=== PATIENT | male | born 1960 | race Caucasian/White ===

== ENCOUNTER 2023-07-21 20:24 | Emergency (ER) | payer MEDICARE, OTHER, SELFPAY ==
[2023-07-21 20:29] VITALS: BP 107/77
[2023-07-21 21:01] LABS: % Basophils 0.3 % (0-2); % Eosinophils 1.6 % (0-6); % Immature Granulocytes 0.3 % (0-0.5); % Lymphocytes 17.3 % (20.5-51.1); % Monocytes 7.4 % (1.7-9.3); % Neutrophils 73.1 % (42.2-75.2); Absolute Eosinophils 0.2 10^3/uL (0-0.7); Absolute Lymphocytes 1.8 10^3/uL (1.2-3.4); Absolute Monocytes 0.8 10^3/uL (0.1-0.6); Absolute Neutrophils 7.8 10^3/uL (1.4-6.5); Hematocrit 36.2 % (39.0-52.0); Hemoglobin 12.5 g/dL (13.0-18.0); Mean Corp Hgb Conc. 34.5 g/dL (33.0-37.0); Mean Corpuscular Hgb 30.9 pg (27.0-31.0); Mean Corpuscular Volume 89.6 fL (80.0-94.0); Mean Platelet Volume 11.3 fL (7.4-10.4); Nucleated Red Blood Cells % 0 % (-); Platelet Count 195 10^3/uL (130-400); Red Blood Cell Count 4.04 10^6/uL (4.70-6.10); Red Cell Dist. Width 13.7 % (11.5-14.5); White Blood Cell Count 10.6 10^3/uL (4.8-10.8)
[2023-07-21 21:12] LABS: Lactic Acid 0.9 mmol/L (0.7-2.0)
[2023-07-21 21:28] LABS: ALT (SGPT) 31 U/L (0-50); AST (SGOT) 40 U/L (17-59); Albumin 4.4 g/dl (3.5-5.0); Alkaline Phosphatase 71 U/L (38-126); Blood Urea Nitrogen 21 mg/dl (9-20); Calcium 9.4 mg/dl (8.4-10.2); Carbon Dioxide 24 mmol/L (22-30); Chloride 103 mmol/L (98-107); Glucose 89 mg/dl (70-99); Potassium 4.1 mmol/L (3.5-5.1); Sodium 134 mmol/L (135-145); Total Bilirubin 0.4 mg/dl (0.2-1.3); Total Protein 7.1 g/dl (6.3-8.2); eGFR > 60.00
[2023-07-21 22:31] VITALS: BMI 29.9
[2023-07-21 22:32] VITALS: BP 102/73
--- NOTE | 2023-07-21 22:54 | ED.GENMED ---
History of Present Illness
General
Chief Complaint: Skin Problem
Source: patient and spouse
Exam Limitations: none
Time Seen by Provider: 07/21/23 22:27
Travel History
Have you had any contact with someone who has COVID-19?: No
Do you have any symptoms of coronavirus? Fever > 100 degrees, chills, cough, shortness of breath, sore throat, loss of taste or smell, muscle aches, or headache?: No
History of Present Illness
History of Present Illness:
This is a 63 year old male that comes in with c/o left elbow pain. States that he started with pain last night. States that he went to work today and when he got home he couldn't get comfortable. states that 2 years ago he had a biopsy donw and
the would wound never heal. Patient had seen a specialist in [facility] but was discharged from her a long time ago. States that he has been good for Months. States that he also had seen a entry specialist at one point in [place] with the
last being in June. Denies any fever, chills, chest pain, SOB, abd pain, nausea, vomiting, diarrhea, headache, dizziness, urinary burning.
Past History
Past History
ED Past Medical History: Asthma, CAD, Cancer (Skin Ca), HTN, Hypercholesterolemia, MS and Other (PE, Sarcoidosis, Patient denies having Raynaud's)
ED Past Surgical History: None, Cardiac (Stent) and Orthopedic (Right 1st and 2nd partial finger amputations, Carpal tunnel, Elbow surgery)
Social History
Tobacco: Former smoker
Alcohol: Occasional
Drug: None
Personal:
Living: with family
Employment: Employed ([employer])
Family History
Family History: Other (No family history of coronary artery disease or aortic dissection)
Review of Systems
Review of Systems
All Other Systems: ROS reviewed and negative except as documented in HPI and ROS
Constitutional: Reports no symptoms; Denies fever or chills
EENT: Reports no symptoms
Respiratory: Reports no symptoms; Denies cough or trouble breathing
Cardiac: Reports no symptoms; Denies chest pain
ABD/GI: Reports no symptoms; Denies abdominal pain, nausea, vomiting or diarrhea
: Reports no symptoms; Denies dysuria, frequency or urgency
Musculoskeletal: Reports joint pain (Left elbow pain and swelling)
Skin: Reports other (Redness left elbow)
Neurological: Reports no symptoms; Denies dizzy or headache
Psychiatric: Reports no symptoms
Phy Exam
General Physical Exam
General Presentation: mild distress
General age: appears stated age
General Skin: warm and dry
General Habitus: normal
General Mental: alert
General Hydration: appears well hydrated
ENT Exam
ENT Exam: TM's normal, pharynx normal and neck supple
Eye Exam
Eye Exam: EOMI
Cardiovascular Exam
Cardiovascular Exam: regular rate/rhythm, no edema, normal peripheral pulses and other ( Murmur)
Pulmonary Exam
Pulmonary Exam: lungs clear, no respiratory distress, no rales, chest non tender, no crackles, no rhonchi, no wheezing and no cough
Gastrointestinal Exam
Gastrointestinal Exam: normal bowel sounds, non tender, soft, no organomegaly, no pulsatile mass and non distended
Musculoskeletal Exam
Musculoskeletal Exam: other (Limite ROM left arm due to pain left elbow with swelling and redness. Increased warmth)
Skin Exam
Skin Exam: normal color, warm/dry, no petechia and redness (Left elbow with increased warmth)
Psychiatric Exam
Psychiatric Exam: normal mood/affect
Course
Orders/Labs/Results
Orders:
Orders
07/21/23 20:48
C-Reactive Protein Urgent
Comment: ADD ON
Complete Blood Count/With Diff Urgent
Comprehensive Metabolic Panel Urgent
Erythrocyte Sed Rate Urgent
Comment: ADD ON
Lactic Acid Urgent
Blood Culture Urgent
EKTA Source: Blood/Venous
Specimen Description:
07/21/23 22:52
Add On- LAB Urgent
Tests Added?: Sed rate, CRP
Elbow, Left [CR Elbow - Left Min 3 Views ] Urgent
Comment:
Reason For Exam: Swelling pain
07/21/23 22:54
HYDROmorphone [Dilaudid] 1 mg IV NOW STA
Ondansetron Injectable [Zofran] 4 mg IV NOW STA
07/21/23 23:17
Blood Culture Urgent
EKTA Source: Blood/Venous
Specimen Description:
Abnormal Lab Results
07/21/23
20:48
RBC 4.04 L 10^6/uL
(4.70-6.10)
Hgb 12.5 L g/dL
(13.0-18.0)
Hct 36.2 L %
(39.0-52.0)
MPV 11.3 H fL
(7.4-10.4)
Absolute Neuts (auto) 7.8 H 10^3/uL
(1.4-6.5)
Absolute Monos (auto) 0.8 H 10^3/uL
(0.1-0.6)
Lymphocytes % 17.3 L %
(20.5-51.1)
Sodium 134 L mmol/L
(135-145)
BUN 21 H mg/dl
(9-20)
07/21/23 20:48
07/21/23 20:48
H/H slightly low. Slight dehydration. lactic acid 0.9, Sed rate normal at 16, CRP normal at 5.40
Vital Signs
Initial and Last Documented VS:
Initial Vital Signs
Temp Pulse Resp BP Pulse Ox
98.2 F 75 20 107/77 96
07/21/23 20:29 07/21/23 20:29 07/21/23 20:29 07/21/23 20:29 07/21/23 20:29
Last Documented Vital Signs
Temp Pulse Resp BP Pulse Ox
98.2 F 66 20 102/73 96
07/21/23 20:29 07/21/23 22:32 07/21/23 20:29 07/21/23 22:32 07/21/23 22:32
MDM/Problems Addressed
Differential Diagnosis Includes:
Septic joint. Cellulitis,
MDM/Problems Addressed:
This is a 63 year old male that comes in with c/o pain in the left elbow. 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 Last night he started with pain and now has swelling with redness.
Will get labs, X-ray and medicate for pain.
Back into see patient. Explained that his blood work is normal along with his inflammatory markers. His X-ray is negative for any obvious Osteo. Offered patient either admission or to try going home on antibiotics and then follow up with the wound
hospice home care coordinator. Patient would rather go home. States that his pain is better and he can now straight his arm. Will place patient on Bactrim and Keflex and given him his first doses here. Will also give patient a prescription for Toradol for pain.
Patient to return with fever, increased redness or any other concerns.
Chronic conditions affecting care:
Left elbow wound with infection
Acute Exacerbation and/or Progression of Chronic Illness:
Left elbow wound with infection.
*Radiology
Radiology exam reviewed: radiology read reviewed (Left Elbow= NO radiographic evidence for an acute osseous abnormality of the left elbow. Posterior soft tissue swelling)
*Pulse Oximetry
Patient hypoxic: no
*EKG
Interpreted by ED Provider?: NA
Rate: EKG- N/A
*Head Bone Grinder Interpretation
Rate: Head Bone Grinder- N/A
*Critical Care Note
Total Time (30-74mins, 75-104mins- exclusive of procedures): Not Applicable
ED Attending Note
-
Portions of this chart may have been created with voice recognition software.� Occasional wrong word or��sound alike� substitutions may have occurred due to the inherent limitations of voice recognition software.
Discharge Plan
Departure
Patient Disposition: Home (Routine Discharge)
Date of Disposition: 07/22/23
Time of Disposition: 00:24
Patient with high blood pressure during this ER visit?: No
Condition: Good
Covid-19: Not Applicable
Discharge Problem:
Cellulitis of left elbow
Instructions: Cellulitis (Skin Infection), Adult (DC)
Prescriptions:
New
sulfamethoxazole-trimethoprim [Bactrim DS] 800-160 mg tablet
1 tab PO BID Qty: 19 0RF
cephalexin 500 mg capsule
500 mg PO QID Qty: 39 0RF
hydromorphone [Dilaudid] 2 mg tablet
2 mg PO Q6H PRN (Reason: Pain) Qty: 5 0RF
No Action
calcium carbonate [Antacid (calcium carbonate)] 1 TABLET tablet,chewable
2 tab PO BIDPRN PRN (Reason: reflux)
apixaban [Eliquis] 5 MG tablet
5 mg PO BID Qty: 60 0RF
nitroglycerin 0.4 MG tablet, sublingual
0.4 mg sublingual [id number] PRN (Reason: hypertension/chest pain) Qty: 20 3RF
aspirin 81 MG tablet,chewable
81 mg PO DAILY 0RF
clopidogrel 75 MG tablet
75 mg PO DAILY Qty: 30 1RF
lisinopril 5 MG tablet
5 mg PO BID Qty: 60 1RF
rosuvastatin 20 MG tablet
20 mg PO QPM Qty: 30 1RF
metoprolol tartrate 25 MG tablet
25 mg PO BID Qty: 60 1RF
cephalexin 500 MG capsule
500 mg PO QID Qty: 28 0RF
Referrals:
UNKNOWN - PT DOES,NOT KNOW [Unknown Provider] -
[facility] - Follow up in 2-3 days
Activity Restrictions/Additional Instructions:
As discussed, your blood work is normal along with your inflammatory markers. Your X-ray is negative for any acute process. You have been given antibiotics here and a prescriptions for home had been sent to your Pharmacy. Please follow up in the
wound center. You may also use Tylenol 1000mg every 6 hours for pain. you have also been given a narcotic pain medication for a short time. IF YOU HAVE FEVER, INCREASED REDNESS, INCREASED SWELLING OR PAIN OR YOU HAVE ANY OTHER CONCERNS PLEASE RETURN
TO THE EMERGENCY ROOM.
Interventions
Interventions:
*Risk Screen - Suicide Last Done: 07/21/23 20:29
*General Assessment Last Done: 07/21/23 20:29
*Neglect/Abuse Screening Last Done: 07/21/23 22:32
*ED COVID-19 Vaccine History Last Done: 07/21/23 22:32
[2023-07-21 23:14] LABS: Erythrocyte Sed Rate 16 mm/hour (0-20)
[2023-07-21] MEDS: ZOFRAN 4 MG IV (23:14)
[2023-07-21] MEDS: DILAUDID 1 MG IV (23:14)
[2023-07-22 00:33] VITALS: BP 100/74
[2023-07-22] MEDS: KEFLEX 500 MG PO (00:42)
[2023-07-22] MEDS: BACTRIM DS 800 MG/160 MG 1 TABLET PO (00:42)
== END 2023-07-22 01:00 | disposition home or self-care (01) ==
LOC: EMR 20:24
PROVIDERS: Student in an Organized Health Care Education/Training Program; EMERGENCY PHYSICIAN Emergency Medicine; FAMILY PHYSICIAN Family Medicine
DX: L03.114 Cellulitis of left upper limb (principal); S51.002A Unspecified open wound of left elbow, initial encounter; X58.XXXA Exposure to other specified factors, initial encounter
CPT/HCPCS: 99284; 96374; 96375; 73080; 80053; 83605; 85025; 85652; 86140; 87040

== ENCOUNTER → 2023-08-23 06:59 | Outpatient (REF) | payer MEDICARE, OTHER, SELFPAY | LOC: HWRCS 06:59 | PROVIDERS: ATTENDING PHYSICIAN Internal Medicine; FAMILY PHYSICIAN Family Medicine | DX: M34.9 Systemic sclerosis, unspecified (principal) | CPT/HCPCS: 93306 ==

== ENCOUNTER → 2023-09-09 06:32 | Day surgery (SDC) | payer MEDICARE, OTHER, SELFPAY | LOC: GI 06:32 | PROVIDERS: ATTENDING PHYSICIAN Internal Medicine Gastroenterology; FAMILY PHYSICIAN Family Medicine | DX: Z12.11 Encounter for screening for malignant neoplasm of colon (principal); R19.5 Other fecal abnormalities | CPT/HCPCS: G0121 ==

== ENCOUNTER → 2023-09-10 06:27 | Day surgery (SDC) | payer MEDICARE, OTHER, SELFPAY | LOC: GI 06:27 | PROVIDERS: ATTENDING PHYSICIAN Internal Medicine Gastroenterology; FAMILY PHYSICIAN Family Medicine | DX: R19.5 Other fecal abnormalities (principal); Z12.11 Encounter for screening for malignant neoplasm of colon; K57.30 Diverticulosis of large intestine without perforation or abscess without bleeding; Z87.19 Personal history of other diseases of the digestive system; K63.89 Other specified diseases of intestine | CPT/HCPCS: 45380; 88305 ==

== ENCOUNTER → 2023-09-14 07:39 | Outpatient (REF) | payer MEDICARE, OTHER, SELFPAY | LOC: RSP 07:39 | PROVIDERS: ATTENDING PHYSICIAN Internal Medicine; FAMILY PHYSICIAN Family Medicine | DX: M34.9 Systemic sclerosis, unspecified (principal); R06.02 Shortness of breath | CPT/HCPCS: 94727; 94729; 88738; 94010 ==

== ENCOUNTER → 2023-10-01 06:41 | Outpatient (REF) | payer MEDICARE, OTHER, SELFPAY | LOC: RAD 06:41 | PROVIDERS: ATTENDING PHYSICIAN Family Medicine | DX: Z87.891 Personal history of nicotine dependence (principal) | CPT/HCPCS: 76770 ==

== ENCOUNTER → 2024-10-17 12:13 | Outpatient (REF) | payer MEDICARE, OTHER, SELFPAY | LOC: WOUND 12:13 | PROVIDERS: ATTENDING PHYSICIAN Surgery; FAMILY PHYSICIAN Family Medicine | DX: S61.202A Unspecified open wound of right middle finger without damage to nail, initial encounter (principal); M34.9 Systemic sclerosis, unspecified; X58.XXXA Exposure to other specified factors, initial encounter | CPT/HCPCS: 99203 ==

== ENCOUNTER → 2024-10-26 06:28 | Outpatient (REF) | payer MEDICARE, OTHER, SELFPAY ==
[2024-10-26 07:37] LABS: % Basophils 0.2 % (0-2); % Eosinophils 1.2 % (0-6); % Immature Granulocytes 0.4 % (0-0.5); % Monocytes 8.4 % (1.7-9.3); % Neutrophils 70.8 % (42.2-75.2); Absolute Eosinophils 0.1 10^3/uL (0-0.7); Absolute Lymphocytes 1.6 10^3/uL (1.2-3.4); Absolute Monocytes 0.7 10^3/uL (0.1-0.6); Absolute Neutrophils 5.9 10^3/uL (1.4-6.5); Hematocrit 40.8 % (39.0-52.0); Hemoglobin 13.6 g/dL (13.0-18.0); Mean Corp Hgb Conc. 33.3 g/dL (33.0-37.0); Mean Corpuscular Hgb 30.3 pg (27.0-31.0); Mean Corpuscular Volume 90.9 fL (80.0-94.0); Nucleated Red Blood Cells % 0 % (-); Platelet Count 207 10^3/uL (130-400); Red Blood Cell Count 4.49 10^6/uL (4.70-6.10); Red Cell Dist. Width 13.4 % (11.5-14.5); White Blood Cell Count 8.3 10^3/uL (4.8-10.8)
[2024-10-26 08:03] LABS: ALT (SGPT) 27 U/L (0-50); AST (SGOT) 31 U/L (17-59); Albumin 4.6 g/dl (3.5-5.0); Alkaline Phosphatase 61 U/L (38-126); Blood Urea Nitrogen 20 mg/dl (9-20); Carbon Dioxide 23 mmol/L (22-30); Chloride 107 mmol/L (98-107); Direct Bilirubin 0.4 mg/dl (0.0-0.4); Glucose 99 mg/dl (70-99); Potassium 4.5 mmol/L (3.5-5.1); Sodium 140 mmol/L (135-145); Total Bilirubin 0.5 mg/dl (0.2-1.3); Total Protein 7.3 g/dl (6.3-8.2); eGFR > 60.00
== END ==
LOC: RSP 06:28
PROVIDERS: ATTENDING PHYSICIAN Internal Medicine; FAMILY PHYSICIAN Family Medicine
DX: M34.9 Systemic sclerosis, unspecified (principal); R06.02 Shortness of breath
CPT/HCPCS: 94727; 94729; 36415; 80053; 82248; 85025; 88738; 94060

== ENCOUNTER 2024-11-30 18:48 | Emergency (ER) | payer MEDICARE, OTHER, SELFPAY ==
[2024-11-30 18:50] VITALS: BP 140/90
[2024-11-30] MEDS: ZOFRAN 4 MG IV (20:09)
[2024-11-30] MEDS: NSS 1000 IV (20:09)
[2024-11-30 20:18] LABS: Hematocrit 40.0 % (39.0-52.0); Hemoglobin 14.1 g/dL (13.0-18.0); Mean Corp Hgb Conc. 35.3 g/dL (33.0-37.0); Mean Corpuscular Volume 86.6 fL (80.0-94.0); Nucleated Red Blood Cells % 0 % (-); Platelet Count 206 10^3/uL (130-400); Red Cell Dist. Width 13.4 % (11.5-14.5)
--- NOTE | 2024-11-30 20:28 | ED.GENMED ---
History of Present Illness
General
Chief Complaint: Post Operative Problem(s)
Source: patient
Exam Limitations: none
Time Seen by Provider: 11/30/24 19:40
Nursing documentation reviewed up to this point in time: agreed with
History of Present Illness
History of Present Illness:
The patient is a pleasant 64-year-old man who underwent a Mohs procedure yesterday. Patient reports that since the procedure, he has had bleeding from the incision. His reports that the blood keeps saturating the dressing. Patient is on
Plavix and aspirin. He does not take Eliquis. Additionally, patient has had nausea and vomiting since the procedure, which his attributes to likely him taking tramadol. She reports he is very sensitive to pain medication. Patient denies
chest pain or shortness of breath. He reports no abdominal pain. He reports just nausea. He denies diarrhea and constipation. His reports that she was instructed to apply Vaseline on the wound and change the dressing daily. He is due to
for a postprocedural follow-up in 1 week. Patient also had a previous Mohs procedure done about 1 week ago at the site of his mid parietal temporal scalp area which is now dressed with a Vaseline gauze and has not caused any issues or bleeding
since.
Past History
Past History
ED Past Medical History: Asthma, CAD, Cancer (Skin Ca), HTN, Hypercholesterolemia, MA and Other (PE, Sarcoidosis, Patient denies having Raynaud's)
ED Past Surgical History: None, Cardiac (Stent) and Orthopedic (Right 1st and 2nd partial finger amputations, Carpal tunnel, Elbow surgery)
Social History
Tobacco: Former smoker
Alcohol: Occasional
Drug: None
Personal:
Living: with family
Employment: Employed ([employer])
Family History
Family History: Other (No family history of coronary artery disease or aortic dissection)
Review of Systems
Review of Systems
Allergies reviewed?: Yes
Other source history: other ( who is at the bedside)
All Other Systems: ROS reviewed and negative except as documented in HPI and ROS
Constitutional: Reports no symptoms
EENT: Reports no symptoms
Respiratory: Reports no symptoms
Cardiac: Reports no symptoms
ABD/GI: Reports nausea, vomiting and anorexia
: Reports no symptoms
Musculoskeletal: Reports no symptoms
Skin: Reports other
Neurological: Reports no symptoms
Endocrine: Reports no symptoms
Hematologic/Lymphatic: Reports no symptoms
Psychiatric: Reports no symptoms
Phy Exam
Physical Exam
Physical Exam:
Physical Exam
General: no apparent distress, not acutely ill.
Neck: supple.
Heart: s1/s2 regular rate and rhythm, no murmur. equal radial pulses.
Lungs: no acute respiratory distress. clear bilaterally
Abdomen: normal bowel sounds. not tender. no CVAT. Nondistended and soft throughout
Neuro: alert and oriented. no focal neurological deficits
Skin: Covered mid parietal temporal wound with Vaseline gauze (Mohs procedure from last week), extensive skin wound with sutures in left temporal parietal scalp area with various skin edges oozing blood
Psychiatric: well kept. interactive and cooperative
Extremities: no edema. no calf tenderness. negative homans. good distal pulses
Course
Orders/Labs/Results
Orders:
Orders
11/30/24 19:52
0.9% Sodium Chloride 1000 ml [Nss] 1,000 ml IV BOLUS
Ondansetron Injectable [Zofran] 4 mg IV NOW STA
11/30/24 20:06
Complete Blood Count/With Diff Urgent
Comprehensive Metabolic Panel Urgent
Lipase Urgent
Abnormal Lab Results
11/30/24
20:06
WBC 12.3 H 10^3/uL
(4.8-10.8)
RBC 4.62 L 10^6/uL
(4.70-6.10)
MPV 11.6 H fL
(7.4-10.4)
Abs Immat Gran (auto) 0.1 H 10^3/uL
(0-0.05)
Absolute Neuts (auto) 9.6 H 10^3/uL
(1.4-6.5)
Absolute Monos (auto) 1.0 H 10^3/uL
(0.1-0.6)
Neutrophils % 78.0 H %
(42.2-75.2)
Lymphocytes % 13.0 L %
(20.5-51.1)
Glucose 100 H mg/dl
(70-99)
Calcium 10.3 H mg/dl
(8.4-10.2)
11/30/24 20:06
11/30/24 20:06
Vital Signs
Initial and Last Documented VS:
Initial Vital Signs
Temp Pulse Resp BP Pulse Ox
98.3 F 90 18 140/90 97
11/30/24 18:50 11/30/24 18:50 11/30/24 18:50 11/30/24 18:50 11/30/24 18:50
Last Documented Vital Signs
Temp Pulse Resp BP Pulse Ox
98.3 F 90 18 124/77 97
11/30/24 18:50 11/30/24 18:50 11/30/24 18:50 11/30/24 21:46 11/30/24 21:46
MDM/Problems Addressed
Differential Diagnosis Includes:
Postprocedural bleeding, gastritis, acute cholecystitis, nausea and vomiting related to tramadol
MDM/Problems Addressed:
Patient presents with acute bleeding of left temporoparietal skin wound from Mohs procedure as well as nausea and vomiting
Chronic conditions affecting care:
Given patient is on Plavix and aspirin, he is at increased risk of postprocedural bleeding
Chronic conditions affecting care: CAD
Acute Exacerbation and/or Progression of Chronic Illness:
Patient denies any chest pain and shortness of breath therefore, it is doubtful he has acute coronary syndrome
Acute Exacerbation and/or Progression of Chronic Illness: CAD
*Pulse Oximetry
SaO2: 97
Oxygen Mode of Delivery: Room air
Patient hypoxic: no
Comment: 97% on room air
*EKG
Interpreted by ED Provider?: NA
*Mastic Floor Layer Interpretation
Rate: normal
Interpretation: normal
Rhythm: sinus
*Critical Care Note
Total Time (30-74mins, 75-104mins- exclusive of procedures): Not Applicable
Data Reviewed
Review of Other/Old Records Reveals: Labs (Hemoglobin 13.6 from 10/26/24)
Source: patient and spouse
Patient Management
Escalation/DeEscalation of care consider admission/obs:
I applied silver nitrate to 3 areas of skin edge bleeding which stopped the bleeding. I applied 2 layers of Dermabond to a larger skin edge that was bleeding with good cessation of bleeding.
Update Note
Update Note:
Bleeding has been well-controlled. Patient's nausea and vomiting are significantly improved with IV fluids and nausea. Patient and report he has follow-up after procedure in 1 week.
ED Attending Note
-
Portions of this chart may have been created with voice recognition software.� Occasional wrong word or��sound alike� substitutions may have occurred due to the inherent limitations of voice recognition software.
Discharge Plan
Departure
Patient Disposition: Home (Routine Discharge)
Date of Disposition: 11/30/24
Time of Disposition: 21:49
Patient with high blood pressure during this ER visit?: Yes
Condition: Good
Covid-19: Not Applicable
Discharge Problem:
Postoperative bleeding from incision, Nausea & vomiting
Instructions: Bleeding After Surgery, Nausea and vomiting in adults - ED discharge instructions, BLOOD PRESSURE
Prescriptions:
New
ondansetron 4 mg tablet,disintegrating
4 mg PO Q8H PRN (Reason: nausea and vomiting) Qty: 14 0RF
No Action
calcium carbonate [Antacid (calcium carbonate)] 1 TABLET tablet,chewable
2 tab PO BIDPRN PRN (Reason: reflux)
apixaban [Eliquis] 5 MG tablet
5 mg PO BID Qty: 60 0RF
nitroglycerin 0.4 MG tablet, sublingual
0.4 mg sublingual [id number] PRN (Reason: hypertension/chest pain) Qty: 20 3RF
aspirin 81 MG tablet,chewable
81 mg PO DAILY 0RF
clopidogrel 75 MG tablet
75 mg PO DAILY Qty: 30 1RF
lisinopril 5 MG tablet
5 mg PO BID Qty: 60 1RF
rosuvastatin 20 MG tablet
20 mg PO QPM Qty: 30 1RF
metoprolol tartrate 25 MG tablet
25 mg PO BID Qty: 60 1RF
cephalexin 500 MG capsule
500 mg PO QID Qty: 28 0RF
sulfamethoxazole-trimethoprim [Bactrim DS] 800-160 mg tablet
1 tab PO BID Qty: 19 0RF
cephalexin 500 mg capsule
500 mg PO QID Qty: 39 0RF
hydromorphone [Dilaudid] 2 mg tablet
2 mg PO Q6H PRN (Reason: Pain) Qty: 5 0RF
Referrals:
Neri Rivero MD [Family Provider, Family Practice]
Activity Restrictions/Additional Instructions:
We applied a small amount of silver nitrate as well as Dermabond to some of the skin edges to control the bleeding. We then applied Surgifoam dressing as well to help with the bleeding.
Please follow-up with your doctor for post procedural checkup in 1 week as scheduled
Interventions
Interventions:
*Risk Screen - Suicide Last Done: 11/30/24 18:50
*General Assessment Last Done: 11/30/24 18:50
*Neglect/Abuse Screening Last Done: 11/30/24 18:50
*ED- Fall Risk Assessment Last Done: 11/30/24 20:30
*ED COVID-19 Vaccine History Last Done: 11/30/24 20:30
ED-Skin Assessment Last Done: 11/30/24 20:30
Discharge Date and Time
Print Language: NEPALI
[2024-11-30 20:35] LABS: ALT (SGPT) 23 U/L (0-50); AST (SGOT) 28 U/L (17-59); Albumin 4.9 g/dl (3.5-5.0); Alkaline Phosphatase 62 U/L (38-126); Blood Urea Nitrogen 15 mg/dl (9-20); Calcium 10.3 mg/dl (8.4-10.2); Carbon Dioxide 22 mmol/L (22-30); Chloride 104 mmol/L (98-107); Glucose 100 mg/dl (70-99); Lipase 74 U/L (23-300); Potassium 4.2 mmol/L (3.5-5.1); Sodium 135 mmol/L (135-145); Total Protein 8.0 g/dl (6.3-8.2); eGFR > 60.00
[2024-11-30 21:46] VITALS: BP 124/77
== END 2024-11-30 22:11 | disposition home or self-care (01) ==
LOC: EMR 18:48
PROVIDERS: EMERGENCY PHYSICIAN Emergency Medicine; FAMILY PHYSICIAN Family Medicine
DX: L76.21 Postprocedural hemorrhage of skin and subcutaneous tissue following a dermatologic procedure (principal); R11.2 Nausea with vomiting, unspecified; D86.9 Sarcoidosis, unspecified; E78.00 Pure hypercholesterolemia, unspecified; I10 Essential (primary) hypertension; I25.10 Atherosclerotic heart disease of native coronary artery without angina pectoris; J45.909 Unspecified asthma, uncomplicated; Z79.02 Long term (current) use of antithrombotics/antiplatelets; Z79.82 Long term (current) use of aspirin; Z85.828 Personal history of other malignant neoplasm of skin; Z87.891 Personal history of nicotine dependence; Z95.5 Presence of coronary angioplasty implant and graft
CPT/HCPCS: 99283; 96374; 96361; 80053; 83690; 85025

== ENCOUNTER → 2025-04-09 16:39 | Outpatient (REF) | payer MEDICARE, OTHER, SELFPAY | LOC: RAD 16:39 | PROVIDERS: ATTENDING PHYSICIAN Family Medicine | DX: M70.21 Olecranon bursitis, right elbow (principal); M25.521 Pain in right elbow; I10 Essential (primary) hypertension; E78.2 Mixed hyperlipidemia; M34.9 Systemic sclerosis, unspecified | CPT/HCPCS: 73080 ==